=== PATIENT | male | born 1950 ===

== ENCOUNTER 2016-11-18 06:45 | Day surgery (SDC) | payer MEDICARE ==
[2016-11-18] MEDS ORDERED: Propofol 10 mg/ml Inj (20 ML) ONE (07:52)
[2016-11-18] MEDS ORDERED: Midazolam 2 MG/2 ML VIAL ONE (07:53)
[2016-11-18] MEDS ORDERED: Lactated Ringer's 1,000 ML IV ONE ×2 (07:55→09:00)
[2016-11-18] MEDS ORDERED: ceFAZolin IV 1 gm in Dextrose 1 GM/50 ML BAG IVPB ONE (08:08)
[2016-11-18] MEDS ORDERED: HYDROmorphone 0.5 mg/0.5 ml ISec IVP PRN (08:44)
[2016-11-18] MEDS ORDERED: Bupivacaine HCl 0.5% PF (10 ml) Inj ONE (08:56)
--- NOTE | 2016-11-18 09:12 | PCM.SURG1 ---
Surgeon's Initial Post Op Note - Surgeon's Notes Surgeon: Dr Dai Compressor Stations Superintendent: Dr Gomez PGY2, Katharine MS3 Type of Anesthesia: General Endo Pre-Operative Diagnosis: right inguinal hernia Operative Findings: right direct inguinal hernia Post-Operative Diagnosis: as above Operation Performed: right inguinal hernia repair w/ mesh Specimen/Specimens Removed: n/a Estimated Blood Loss: EBL {In ML}: 10 Blood Products Given: N/A Drains Used: No Drains Post-Op Condition: Good Date of Surgery/Procedure: 11/18/16 Time of Surgery/Procedure: 09:12
[2016-11-18] MEDS ORDERED: Oxycodone/Acetaminophen 5/325 mg Tab PO PRN (09:13)
--- NOTE | 2016-11-18 11:46 | OP ---
PROCEDURE DATE: 11/18/2016 PREOPERATIVE DIAGNOSIS: Right inguinal hernia. POSTOPERATIVE DIAGNOSIS: Right inguinal hernia. PROCEDURE CARRIED OUT: Repair of right inguinal hernia with PHS Prolene hernia system. SURGEON: Rod Dai Jr., MD FOOD TECHNOLOGIST: Dr. Gomez, resident ANESTHESIOLOGIST: Monse Ashton CRNA A 66-year-old man with a symptomatic right inguinal hernia. This was a direct inguinal hernia. Ther e was no indirect component. The rest of the intraoperative findings are unremarkable. PROCEDURE: The patient was given general anesthesia, intravenous antibiotics, Venodyne boots were ap plied. An incision was made in the groin, exposing the external oblique, which was divided. The cor d and its contents identified. The hernia sac identified, which was dissected free and inverted back into the peritoneal cavity. The nerve was identified and preserved. The PHS Prolene hernia system was positioned and unfurled appropriately in the preperitoneal space and then secured with mary an d sutures to the surrounding fascia. The skin was then closed with subcuticular closure and Steri-St rips and Marcaine was injected. OPERATION CARRIED OUT: Repair of right inguinal hernia with PHS Prolene hernia system. This was a d irect hernia. Rod Dai Jr., MD cc:Yasmin Craft MD 56 TT: 11/18/2016 11:45:09 en
[2016-11-18 11:51] VITALS: BP 134/67; PULSE 61; RESP 18; TEMP 97.6; O2SAT 98
== END 2016-11-18 11:42 | disposition home or self-care (01) ==
LOC: C.SDS 06:45
PROVIDERS: ATTEND Surgery Vascular Surgery
DX: K40.90 Unilateral inguinal hernia, without obstruction or gangrene, not specified as recurrent (principal)
CPT/HCPCS: 49505; C1781; J0131; J0690; J2250; J2704; J3010; J7120

== ENCOUNTER 2018-02-18 06:49 | Day surgery (SDC) | payer MEDICARE ==
[2018-02-18] MEDS ORDERED: ceFAZolin IV 1 gm in Dextrose 1 GM/50 ML BAG IVPB ONE (07:04)
[2018-02-18] MEDS ORDERED: Bupivacaine 0.25% 20 ML INJ IJ ONE (07:05)
[2018-02-18] MEDS ORDERED: Propofol 10 mg/ml Inj (20 ML) ONE (07:52)
[2018-02-18] MEDS ORDERED: Rocuronium 10 mg/ml (10 ml) ONE (07:53)
[2018-02-18] MEDS ORDERED: Succinylcholine Chloride 20 mg/ml Syr (5 ml) IV ONE (07:53)
[2018-02-18] MEDS ORDERED: Midazolam 2 MG/2 ML VIAL ONE (07:54)
[2018-02-18] MEDS ORDERED: ePHEDrine 50 mg/ml Inj ONE (08:11)
[2018-02-18] MEDS ORDERED: Bupivacaine-Epi 0.5%-1:200,000 PF Inj ONE (08:23)
--- NOTE | 2018-02-18 09:07 | PCM.SURG1 ---
Surgeon's Initial Post Op Note - Surgeon's Notes Surgeon: tiffanie General Claims Agent: [id number] Type of Anesthesia: General LMA, IV Sedation Anesthesia Administered By: terry Pre-Operative Diagnosis: left inguinal hernia Operative Findings: indirect inguinal hernia Post-Operative Diagnosis: same Operation Performed: lih with phs mesh Specimen/Specimens Removed: 0 Estimated Blood Loss: EBL {In ML}: 5 Blood Products Given: N/A Drains Used: No Drains Post-Op Condition: Good Date of Surgery/Procedure: 02/18/18 Time of Surgery/Procedure: 09:07
[2018-02-18] MEDS ORDERED: Oxycodone/Acetaminophen 5/325 mg Tab PO PRN (09:08)
[2018-02-18] MEDS ORDERED: HYDROmorphone 0.5 mg/0.5 ml ISec IVP PRN (09:11)
[2018-02-18 09:28] VITALS: O2SAT 100
[2018-02-18 12:15] VITALS: BP 136/76; PULSE 66; RESP 18; TEMP 97.5
--- NOTE | 2018-02-18 20:05 | OP ---
Copied To: Rod Dai Jr., MD Attending MD: Rod Dai Jr., MD PROCEDURE DATE: 02/18/2018 PREOPERATIVE DIAGNOSIS: Left inguinal hernia. POSTOPERATIVE DIAGNOSIS: Left inguinal hernia, indirect. PROCEDURE CARRIED OUT: Repair of left indirect inguinal hernia with PHS (Prolene Hernia System). SURGEON: Rod Dai Jr., MD ROCK WOOL INSULATOR: None. TYPE OF ANESTHESIA: General anesthesia. ANESTHESIA ADMINISTERED BY: Aminata Muir MD INDICATIONS: The patient is a 67-year-old [place] man with a symptomatic left inguinal hernia. OPERATIVE FINDINGS: 1. This was an indirect hernia. 2. There were no unusual complications or findings. DESCRIPTION OF PROCEDURE: The patient was given local anesthesia, Marcaine with epinephrine. An incision was then made in the groin exposing the cord and its contents, which were dissected away. The nerve was identified and preserved. Hernial defect was identified. The sac was identified. The mesh was sutured to the sac and inverted back into the peritoneal cavity. After this was unfurled in the appropriate location, the mesh was stapled and sutured into position. The external oblique was closed. The skin was closed with a subcuticular closure and Marcaine was again injected. Blood loss to procedure was 5 mL. Operation carried out was repair of left indirect inguinal hernia. Rod Dai Jr., MD cc: Yasmin Craft MD
== END 2018-02-18 11:44 | disposition home or self-care (01) ==
LOC: C.SDS 06:49
PROVIDERS: ATTEND Surgery Vascular Surgery
DX: K40.90 Unilateral inguinal hernia, without obstruction or gangrene, not specified as recurrent (principal)
CPT/HCPCS: 49505; C1781; J0690; J2001; J2250; J2405; J2704; J3010